=== PATIENT | male | born 1980 | race Caucasian/White ===

== ENCOUNTER 2020-12-11 13:59 | Emergency (ER) | payer OTHER ==
[~2020-12-11 13:59] MED LIST: AUGMENTIN 875-1 EACH PO; BACTRIM DS TAB1 EACH PO; CLEOCIN HCL300 MG PO; KEFLEX CAP 500500 MG PO; TYLENOL 8 HOUR650 MG PO
[2020-12-11] MEDS ORDERED: BACTROBAN OINT22 GM EXT (14:08)
== END 2020-12-11 14:11 | disposition home or self-care (01) ==
LOC: ER1 13:59
DX: S90.425A Blister (nonthermal), left lesser toe(s), initial encounter (principal); F17.200 Nicotine dependence, unspecified, uncomplicated; W22.8XXA Striking against or struck by other objects, initial encounter
CPT/HCPCS: 99283